=== PATIENT | male | born 2000 | race African-American/Black ===

== ENCOUNTER 2020-11-11 05:08 | Emergency (ER) | payer MEDICAID ==
[~2020-11-11] VITALS: Ht 170.2 cm; Wt 69.0 kg
[2020-11-11 06:26] LABS: CHLORIDE 109 mEq/L (98-107)
[2020-11-11 06:28] LABS: BASOPHILS % 0.5 % (0.0-2.0); EOSINOPHILS % 2.3 % (0.0-5.0); HEMATOCRIT. 45.3 % (42.0-52.0); HEMOGLOBIN. 15.1 g/dL (14.0-18.0); LYMPHOCYTES % 14.6 % (20.0-50.0); MEAN CORPUSCULAR HEMOGLOBIN 29.9 pg (28.0-32.0); MEAN CORPUSCULAR VOLUME 89.8 fL (80.0-94.0); MEAN PLATELET VOLUME 8.3 fl (7.4-10.4); MONOCYTES % 12.1 % (2.0-8.0); NEUTROPHILS % 70.5 % (40.0-76.0); PLATELET 211 x1000/uL (130-400); RED BLOOD CELL COUNT 5.04 mill/uL (4.7-6.1); RED CELL DISTRIBUTION WIDTH 14.7 % (11.6-14.6)
[2020-11-11 06:31] LABS: ETHANOL BLOOD < 10 mg/dL
[2020-11-11 06:47] LABS: CLARITY URINE CLEAR (CLEAR); COLOR URINE YELLOW (YELLOW); KETONES URINE NEGATIVE (NEGATIVE); LEUKOCYTE ESTERASE URINE 1+ (NEGATIVE); NITRITE URINE NEGATIVE (NEGATIVE); OCCULT BLOOD URINE NEGATIVE (NEGATIVE); PROTEIN URINE TRACE (NEGATIVE); SPECIFIC GRAVITY URINE 1.023 (1.005-1.030); UROBILINOGEN URINE 0.2 E.U./dL (0.2-1.0)
[2020-11-11 07:09] LABS: *AMPHETAMINES SCREEN URINE NEGATIVE (NEGATIVE); *BARBITURATES SCREEN URINE NEGATIVE (NEGATIVE); CANNABINOID URINE SCREEN PRESUMTIVE POSITIVE (NEGATIVE); METHADONE URINE SCREEN NEGATIVE (NEGATIVE); OPIATES URINE SCREEN NEGATIVE (NEGATIVE); PHENCYCLIDINE URINE SCREEN NEGATIVE (NEGATIVE)
[2020-11-11 07:10] LABS: *BENZODIAZEPINES SCREEN URINE NEGATIVE (NEGATIVE); *COCAINE SCREEN URINE NEGATIVE (NEGATIVE)
[2020-11-11] MEDS ORDERED: NITROFURANTOIN 100MG M/M CAPSULE PO ONE (10:45)
[2020-11-11] MEDS ORDERED: LORAZEPAM 1MG TABLET PO ONE (13:00)
[2020-11-11] MEDS ORDERED: HALOPERIDOL 5MG TABLET PO ONE (13:00)
[2020-11-11] MEDS ORDERED: NITROFURANTOIN 100MG M/M CAPSULE PO NR (15:45)
[2020-11-12 19:54] VITALS: BP 117/78
== END 2020-11-12 20:17 ==
LOC: ER 05:08
DX: F31.2 Bipolar disorder, current episode manic severe with psychotic features (principal); R44.0 Auditory hallucinations; R45.6 Violent behavior; R45.1 Restlessness and agitation; Z20.822 Contact with and (suspected) exposure to COVID-19; Z75.1 Person awaiting admission to adequate facility elsewhere
CPT/HCPCS: 36415; 80053; 80305; 80320; 81003; 85025; 87426; 93005; 99285; C9803; J1630; U0003; G0480